=== PATIENT | female | born 1955 | race Caucasian/White ===

== ENCOUNTER 2017-02-17 11:25 | Day surgery (SDC) | payer OTHER ==
[~2017-02-17] VITALS: Ht 167.6 cm; Wt 68.6 kg
[2017-02-17] MEDS ORDERED: NO DAILY MEDS (12:24)
[2017-02-17 12:28] VITALS: Ht 167.6 cm; Wt 68.6 kg
[2017-02-17 14:10] VITALS: BP 174/77; PULSE 81; RESP 19
[2017-02-17] MEDS ORDERED: FENTAnyl 50 MCG/ML VIAL ONE (14:45)
[2017-02-17] MEDS ORDERED: MIDAZOLAM 1 MG/ML 2 ML INJ ONE ×3 (14:45)
--- NOTE | 2017-02-17 14:46 | OPPN ---
Date/Time of Note Date/Time of Note DATE: 02/17/17 TIME: 14:44 Operative Report Preoperative Diagnosis Screening Postoperative Diagnosis Internal hemorrhoids No colon neoplasm is identified Operation/Procedure Performed Colonoscopy Provider: ANGEL ANDINO MD Anesthesia Type: moderate sedation Estimated blood loss: none Transfusion Required: no Specimen: none Grafts/Implants: none Complications: no ANGEL ANDINO MD Feb 17, 2017 14:46
--- NOTE | 2017-02-17 15:24 | GILP ---
DATE OF PROCEDURE: 02/17/2017 PROCEDURE PERFORMED: Colonoscopy. SURGEON: Brea Walker MD PREOPERATIVE DIAGNOSIS: Screening. POSTOPERATIVE DIAGNOSES: 1. Colonoscopy all the way to the cecum. 2. Internal hemorrhoids. 3. No colon neoplasm was identified. INDICATION: Ms Diane Blair is a 61-year-old female patient who was scheduled for screening colonoscopy. The procedure and possible complications were well explained to the patient. The patient understood and consented to the procedure. DESCRIPTION OF PROCEDURE: Under the influence of fentanyl and Versed, the colonoscope was carefully introduced into the rectum. Under direct vision it was advanced all the way to the cecum. FINDINGS: The patient had internal hemorrhoids. No colon neoplasm was identified. She tolerated the procedure very well. There were no complication from the procedure. At the end of procedure she was awake with stable vital signs and she was discharged home in the care of her family. IMPRESSION: 1. Colonoscopy all the way to the cecum. 2. Internal hemorrhoids. 3. No colon neoplasm was identified. PLAN: Next screening colonoscopy in 10 years. Dictated By: MD KRUPA Yarbrough/rhonda/phi /Document#: [id number]
== END 2017-02-17 18:12 | disposition home or self-care (01) ==
LOC: GIL 11:25
PROVIDERS: ATTEND Internal Medicine Gastroenterology
DX: Z12.11 Encounter for screening for malignant neoplasm of colon (principal); K64.8 Other hemorrhoids
CPT/HCPCS: 45378; J2250; J3010